=== PATIENT | male | born 2000 | race Two or more races ===

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

== ENCOUNTER 2023-11-27 23:05 | Emergency (ER) | payer BC ==
[~2023-11-27] VITALS: Ht 177.8 cm; Wt 63.0 kg
[2023-11-28 00:03] VITALS: BP 144/88; PULSE 95; RESP 16; TEMP 98.4; O2SAT 96
[2023-11-28] MEDS: KETOROLAC TROMETH 30 MG/ML 1ML VIAL IM ONE (00:20)
[2023-11-28] MEDS ORDERED: CYCL-837 PO (02:13)
== END 2023-11-28 02:17 | disposition home or self-care (01) ==
LOC: ER 23:05
DX: N50.82 Scrotal pain (principal); R51.9 Headache, unspecified; M54.6 Pain in thoracic spine; R11.0 Nausea; V43.52XA Car driver injured in collision with other type car in traffic accident, initial encounter; Y93.I9 Activity, other involving external motion; Y92.89 Other specified places as the place of occurrence of the external cause; Y99.8 Other external cause status
CPT/HCPCS: 70450; 71250; 72125; 72128; 72131; 74176; 96372; 99285; J1885